=== PATIENT | male | born 1990 | race Caucasian/White ===

== ENCOUNTER 2023-01-20 23:29 | Emergency (ER) | payer BC ==
[~2023-01-20] VITALS: Ht 162.6 cm; Wt 90.9 kg
[2023-01-20 23:49] VITALS: BP 136/89
== END 2023-01-21 04:16 | disposition left against medical advice (07) ==
LOC: ER 23:30
DX: M54.6 Pain in thoracic spine (principal); Z53.21 Procedure and treatment not carried out due to patient leaving prior to being seen by health care provider
CPT/HCPCS: 99281